=== PATIENT | male | born 1935 | race Two or more races ===

== ENCOUNTER 2025-08-31 17:48 | Inpatient (IN) | payer MEDICARE, MEDICAID ==
[~2025-08-31] VITALS: Ht 170.2 cm; Wt 71.7 kg
[2025-08-31 18:18] LABS: PLATELET COUNT (AUTO) 223 K/uL (150-450); RED BLOOD CELL COUNT(AUTO) 4.42 MIL/uL (4.5-6.0); RED CELL DISTRIBUTION WIDTH 14.0 % (11.5-15.0); WHITE BLOOD COUNT (AUTO) 8.7 K/uL (4.3-11.0)
[2025-08-31 18:29] LABS: CALCIUM, SERUM 9.3 mg/dL (8.5-10.1); CREATININE 1.6 mg/dL (0.6-1.3); SODIUM SERUM 136 mmol/L (136-145); UREA NITROGEN, BLOOD 44 mg/dL (7-18)
[2025-08-31] MEDS ORDERED: Z GUARD REMEDY 4 OZ OINT TP PRN (20:30)
[2025-08-31] MEDS ORDERED: ONDANSETRON HCL/PF 4 MG/2 ML VIAL IVP PRN (20:30)
[2025-08-31] MEDS ORDERED: DEXTROSE 50%-WATER 50 ML DISP.SYRIN IV PRN (20:30)
[2025-08-31] MEDS ORDERED: NITROGLYCERIN 0.4 MG/TAB BOTTLE SL PRN (20:30)
[2025-08-31] MEDS ORDERED: ASPIRIN 325 MG TABLET ONE (20:37)
[2025-08-31] MEDS: ASPIRIN 325 MG TABLET PO ONE (20:38)
[2025-08-31 21:05] VITALS: O2SAT 98
[2025-08-31 21:10] VITALS: BP 143/78; TEMP 97.7; O2SAT 98
[2025-08-31] MEDS: IV NS 0.9% 1,000 ML IV PRN (22:40)
[2025-08-31] MEDS: ATORVASTATIN 40 MG TABLET PO SCH (22:42)
[2025-08-31] MEDS: INSULIN REGULAR, HUMAN 100 UNIT/ML 3 ML VIAL SQ PRN (23:03)
[2025-08-31] MEDS: BLOOD SUGAR DIAGNOSTIC 1 EACH STRIP IN SCH (23:03)
[2025-09-01] VITALS: BP 147/81; TEMP 97.3; O2SAT 97
[2025-09-01 04:00] VITALS: BP 119/69; TEMP 97.7; O2SAT 95
[2025-09-01 07:10] LABS: PLATELET COUNT (AUTO) 198 K/uL (150-450); RED BLOOD CELL COUNT(AUTO) 4.10 MIL/uL (4.5-6.0); RED CELL DISTRIBUTION WIDTH 13.7 % (11.5-15.0); WHITE BLOOD COUNT (AUTO) 6.1 K/uL (4.3-11.0)
[2025-09-01 07:18] LABS: CALCIUM, SERUM 9.1 mg/dL (8.5-10.1); CREATININE 1.0 mg/dL (0.6-1.3); PHOSPHORUS 3.9 mg/dL (2.5-4.9); SODIUM SERUM 142.0 mmol/L (136-145); UREA NITROGEN, BLOOD 34.0 mg/dL (7-18)
[2025-09-01 07:19] LABS: APPEARANCE,URINE CLEAR (CLEAR); BLOOD, URINE NEGATIVE Ery/uL (NEGATIVE); LEUKOCYTE ESTERASE ,URINE NEGATIVE (NEGATIVE); NITRITE, URINE NEGATIVE (NEGATIVE); UGLUCOSE NEGATIVE (NEGATIVE)
[2025-09-01] MEDS: PANTOPRAZOLE 40 MG TABLET.DR PO SCH (07:42)
[2025-09-01] MEDS: ASPIRIN 81 MG TAB.CHEW PO SCH (08:13)
[2025-09-01 08:54] VITALS: BP 142/63; TEMP 97.7; O2SAT 100
[2025-09-01 08:59] LABS: LDL 91.0 mg/dL (0-99)
[2025-09-01] MEDS ORDERED: IV NS 0.9% 250 ML IV ONE (11:09)
[2025-09-01] MEDS ORDERED: IOHEXOL-350 100 ML VIAL IV ONE (11:09)
[2025-09-01] MEDS ORDERED: NITROGLYCERIN 0.4 MG/TAB BOTTLE ONE (11:32)
[2025-09-01] MEDS ORDERED: METOPROLOL TARTRATE INJ 5 MG/5 ML AMPUL ONE (11:32)
[2025-09-01] MEDS: NITROGLYCERIN 0.4 MG/TAB BOTTLE SL ONE (11:37)
[2025-09-01] MEDS: METOPROLOL TARTRATE INJ 5 MG/5 ML AMPUL IVP PRN (11:37)
[2025-09-01 12:22] VITALS: BP 147/78; TEMP 97.7; O2SAT 97
[2025-09-01] MEDS ORDERED: METF-440 PO (12:50)
[2025-09-01] MEDS ORDERED: ATOR40TA PO (12:50)
[2025-09-01] MEDS ORDERED: ASPI-1169 PO (12:50)
[2025-09-01 16:06] VITALS: BP 147/71; TEMP 97.6; O2SAT 99
[2025-09-01 17:31] LABS: CREATININE, URINE 50.7 MG/DL (30.0-125.0); URINE SODIUM, RANDOM 115.0 mmol/l (40-220); URINE TOTAL PROTEIN 9.3 mg/dL (0-11.9)
[2025-09-01 20:00] VITALS: BP 135/86; TEMP 97.7; O2SAT 95
[2025-09-02] VITALS: BP 139/83; TEMP 97.7; O2SAT 98
[2025-09-02 04:00] VITALS: BP 156/60; TEMP 97.5; O2SAT 96
[2025-09-02 08:00] VITALS: BP 119/70; TEMP 97.7; O2SAT 97
[2025-09-02] MEDS: METOPROLOL TARTRATE 50 MG TABLET PO SCH (09:05)
[2025-09-02] MEDS: ACETAMINOPHEN 325 MG TABLET PO PRN (11:09)
[2025-09-02 12:00] VITALS: BP 147/81; TEMP 98; O2SAT 98
[2025-09-02 16:00] VITALS: BP 137/70; TEMP 98.1; O2SAT 98
[2025-09-02 20:00] VITALS: BP 113/69; TEMP 97.7; O2SAT 96
[2025-09-03] VITALS: BP 128/60; TEMP 97.7; O2SAT 96
== END 2025-09-03 06:25 | disposition short-term general hospital (02) | DRG 206 ==
LOC: ER 18:00 → TELE 21:14
PROVIDERS: ADMIT Nurse Practitioner Family; ATTEND Nurse Practitioner Acute Care
DX: M94.0 Chondrocostal junction syndrome [Tietze] (principal); N17.9 Acute kidney failure, unspecified; N18.9 Chronic kidney disease, unspecified; I12.9 Hypertensive chronic kidney disease with stage 1 through stage 4 chronic kidney disease, or unspecified chronic kidney disease; I10 Essential (primary) hypertension; Z96.651 Presence of right artificial knee joint; E11.65 Type 2 diabetes mellitus with hyperglycemia; E86.9 Volume depletion, unspecified; I25.10 Atherosclerotic heart disease of native coronary artery without angina pectoris
CPT/HCPCS: 36415; 71045-TC; 75574; 80048-TC; 80061-TC; 82570-TC; 82962-TC; 83735-TC; 84100-TC; 84300-TC; 84484-TC; 85025-TC; 93307-TC; A4223; G0378; J1815; J3490; J7030; J7050; Q9967